=== PATIENT | male | born 2000 | race Caucasian/White ===

== ENCOUNTER 2021-01-08 05:58 | Emergency (ER) | payer OTHER ==
[2021-01-08 06:54] LABS: BASOPHIL 0.9 % (0-2); EOSINOPHIL 2.2 % (0-5); HCT 44.9 % (42.0-52.0); HGB 15.9 g/dl (13.2-18.0); LYMPHOCYTE 47.5 % (15-48); MCHC 35.4 g/dL (32.0-36.0); MCV 81.9 fL (78.0-100.0); MPV 11.4 fL (6.0-9.5); NRBC 0; PLT 326 K/uL (150-400); RBC 5.48 M/uL (4.70-6.00); RDW 11.7 % (11.5-14.0); WBC 11.1 K/uL (4.0-10.5)
[2021-01-08 06:59] LABS: PROTHROMBIN TIME 13.6 SECONDS (11.8-13.4); PTT 28.6 SECONDS (24.4-34.7)
[2021-01-08 07:00] LABS: D-DIMER < 0.27 ug/mLFEU (0.00-0.41)
[2021-01-08 07:26] LABS: ALBUMIN 4.6 g/dL (3.4-5.0); BUN/CREAT RATIO (CALC) 9.7 RATIO; CREATININE 1.13 mg/dL (0.67-1.17); FT4 (FREE T4) 1.2 ng/dL (0.76-1.46); GLOBULIN (CALCULATION) 3.1 g/dL; MAGNESIUM 2.4 mg/dL (1.8-2.4); POTASSIUM 3.2 mmol/L (3.5-5.1); TOTAL PROTEIN 7.7 g/dL (6.4-8.2)
[2021-01-08 07:54] LABS: BILIRUBIN NEGATIVE (NEGATIVE); BLOOD NEGATIVE Ery/uL (NEGATIVE); CLARITY CLEAR (CLEAR); COLOR YELLOW (YELLOW); GLUCOSE (U) NORMAL (NORMAL); LEUKOCYTES NEGATIVE Leu/uL (NEGATIVE); NITRITE NEGATIVE (NEGATIVE); PROTEIN NEGATIVE (NEGATIVE); SPECIFIC GRAVITY 1.025 (1.001-1.030); UROBILINOGEN 0.2 mg/dL (0.2-1.0)
[2021-01-08 08:02] LABS: AMPHETAMINES NEGATIVE (NEGATIVE); BARBITURATES NEGATIVE (NEGATIVE); ECSTASY (MDMA) NEGATIVE (NEGATIVE); MARIJUANA (THC) POSITIVE (NEGATIVE); METHADONE NEGATIVE (NEGATIVE); OPIATES NEGATIVE (NEGATIVE); OXYCODONE NEGATIVE (NEGATIVE)
== END 2021-01-08 09:34 | disposition home or self-care (01) ==
LOC: FER 05:58
PROVIDERS: Emergency Medicine Emergency Medical Services
DX: R00.2 Palpitations (principal); R00.0 Tachycardia, unspecified; R07.89 Other chest pain; R42 Dizziness and giddiness; Z90.09 Acquired absence of other part of head and neck; Z88.1 Allergy status to other antibiotic agents; Z79.899 Other long term (current) drug therapy
CPT/HCPCS: 36415; 71045; 80053; 80305; 81003; 83735; 84439; 84443; 84484; 85025; 85379; 85610; 85730; 93005; J7030

== ENCOUNTER 2021-02-16 23:05 | Emergency (ER) | payer OTHER ==
[2021-02-17 01:03] LABS: BASOPHIL 0.5 % (0-2); EOSINOPHIL 0.9 % (0-5); HCT 42.1 % (42.0-52.0); HGB 14.9 g/dl (13.2-18.0); LYMPHOCYTE 13.6 % (15-48); MCH 28.5 pg (25.0-31.0); MCHC 35.4 g/dL (32.0-36.0); MCV 80.5 fL (78.0-100.0); MPV 10.5 fL (6.0-9.5); NEUTROPHIL 76.5 % (41-80); NRBC 0; PLT 265 K/uL (150-400); RBC 5.23 M/uL (4.70-6.00); RDW 11.8 % (11.5-14.0); WBC 10.9 K/uL (4.0-10.5)
[2021-02-17 01:13] LABS: AMPHETAMINES NEGATIVE (NEGATIVE); BARBITURATES NEGATIVE (NEGATIVE); ECSTASY (MDMA) NEGATIVE (NEGATIVE); MARIJUANA (THC) NEGATIVE (NEGATIVE); METHADONE NEGATIVE (NEGATIVE); OPIATES NEGATIVE (NEGATIVE); OXYCODONE NEGATIVE (NEGATIVE)
[2021-02-17 01:27] LABS: ALBUMIN 4.1 g/dL (3.4-5.0); BILIRUBIN - TOTAL 0.7 mg/dL (0.2-1.0); BUN/CREAT RATIO (CALC) 12.7 RATIO; CREATININE 1.1 mg/dL (0.67-1.17); GLOBULIN (CALCULATION) 2.9 g/dL
== END 2021-02-17 04:05 | disposition home or self-care (01) ==
LOC: FER 23:05
PROVIDERS: Emergency Medicine
DX: R00.2 Palpitations (principal); R00.0 Tachycardia, unspecified; R07.9 Chest pain, unspecified; Z87.891 Personal history of nicotine dependence; Z20.822 Contact with and (suspected) exposure to COVID-19
CPT/HCPCS: 36415; 71045; 80053; 80305; 84443; 84484; 85025; 93005; J7030; U0002